=== PATIENT | male | born 1955 | race Caucasian/White ===

== ENCOUNTER 2021-06-02 12:43 | Emergency (ER) | payer OTHER, MEDICAID ==
[~2021-06-02] VITALS: Ht 172.7 cm; Wt 100.0 kg
[2021-06-02 13:05] LABS: BASOPHILS % (AUTO) 0.5 % (0-1); EOSINOPHILS # (AUTO) 0.2 X10'3 (0-0.9); EOSINOPHILS % (AUTO) 3.9 % (0-6); HEMATOCRIT 40.1 % (42.0-52.0); HEMOGLOBIN 13.5 g/dl (14.0-17.9); LYMPHOCYTES # (AUTO) 1.7 X10'3 (1.1-4.8); LYMPHOCYTES % (AUTO) 27.6 % (21-51); MEAN CORPUSCULAR HEMOGLOBIN 29.3 PG (27.0-31.0); MEAN CORPUSCULAR HGB CONC 33.6 g/dL (33.0-36.5); MONOCYTES # (AUTO) 0.6 X10'3 (0-0.9); MONOCYTES % (AUTO) 8.9 % (2-12); NEUTROPHILS # (AUTO) 3.7 X10'3 (1.8-7.7); NEUTROPHILS % (AUTO) 59.1 % (42-75); PLATELET COUNT 232 X10'3 (140-440); RED BLOOD COUNT 4.61 X10'6 (4.70-6.10); RED CELL DISTRIBUTION WIDTH 15.5 % (11.5-14.5); WHITE BLOOD COUNT 6.3 X10'3 (4.5-11.0)
[2021-06-02 13:24] LABS: ALANINE AMINOTRANSFERASE 28 U/L (12-78); ALBUMIN 3.6 G/DL (3.4-5.0); ALBUMIN/GLOBULIN RATIO 1.2 (1.1-1.5); ALKALINE PHOSPHATASE 50 IU/L (46-116); ANION GAP 9 (8-16); ASPARTATE AMINO TRANSFERASE 21 U/L (10-37); BILIRUBIN,TOTAL 0.6 MG/DL (0.1-1.0); BLOOD UREA NITROGEN 12 MG/DL (7-18); BUN/CREATININE RATIO 12.8 (5.4-32.0); CALCIUM 8.9 MG/DL (8.5-10.1); CHLORIDE 107 MMOL/L (99-107); CREATININE 0.94 MG/DL (0.60-1.10); GLUCOSE 99 MG/DL (70-104); POTASSIUM 3.8 MMOL/L (3.5-5.1); SODIUM 141 MMOL/L (135-145); TOTAL CARBON DIOXIDE 25.3 MMOL/L (24-32); TOTAL PROTEIN 6.6 G/DL (6.4-8.2); eGFR 81 ML/MIN
[2021-06-02 16:19] VITALS: BP 120/50
== END 2021-06-02 16:20 | disposition home or self-care (01) ==
LOC: ER 12:43
DX: R00.1 Bradycardia, unspecified (principal); I10 Essential (primary) hypertension; G89.29 Other chronic pain; Z98.84 Bariatric surgery status
CPT/HCPCS: 36415; 71045; 80053; 83880; 84443; 84484; 85025; 93005; 99285

== ENCOUNTER 2024-10-01 07:07 | Day surgery (SDC) | payer MEDICARE, OTHER, MEDICAID ==
--- NOTE | 2024-09-26 13:59 | ELECTROCARDIOGRAPH REPORT ---
[facility] Test Date: 2024-09-26 Test Time: 13:56:45 Pat Name: DELPHINE CASTRO Department: [facility]-PRE-OP Patient ID: [id number] Room: Gender: M [employer]: MARK : 1955 Requested By: GINGER FERNANDEZ Order Number: [id number] Reading MD: Dr. SCOTTY Muniz Measurements Intervals Rex Rate: 60 P: 0 NH: 118 QRS: -28 QRSD: 106 T: 30 QT: 458 QTc: 458 Interpretive Statements Atrial-paced rhythm Borderline left axis deviation Electronically Signed On 09-26-2024 17:37:[address] SCOTTY Muniz Please click the below link to view image of tracing.
[2024-09-26 14:24] LABS: BASOPHILS % (AUTO) 0.4 % (0-1); EOSINOPHILS # (AUTO) 0.1 X10'3 (0-0.9); EOSINOPHILS % (AUTO) 1.2 % (0-6); LYMPHOCYTES # (AUTO) 1.5 X10'3 (1.1-4.8); LYMPHOCYTES % (AUTO) 16.6 % (21-51); MEAN CORPUSCULAR HEMOGLOBIN 25.6 PG (27.0-31.0); MEAN CORPUSCULAR HGB CONC 32.3 g/dL (33.0-36.5); MEAN CORPUSCULAR VOLUME 79.2 FL (78-98); MEAN PLATELET VOLUME 7.8 FL (7.4-10.4); MONOCYTES # (AUTO) 0.9 X10'3 (0-0.9); MONOCYTES % (AUTO) 9.7 % (2-12); NEUTROPHILS # (AUTO) 6.3 X10'3 (1.8-7.7); NEUTROPHILS % (AUTO) 72.1 % (42-75); PRE OP HEMATOCRIT 38.1 % (42.0-52.0); PRE OP HEMOGLOBIN 12.3 g/dL (14.0-17.9); PRE OP PLATELET COUNT 247 X10'3 (140-440); PRE OP WHITE BLOOD COUNT 8.8 10'3 (4.8-10.8); RED BLOOD COUNT 4.82 X10'6 (4.70-6.10)
[2024-09-26 15:10] LABS: ALBUMIN 3.5 G/DL (3.4-5.0); ALBUMIN/GLOBULIN RATIO 1.2 (1.1-1.5); ALKALINE PHOSPHATASE 70 IU/L (46-116); BLOOD UREA NITROGEN 19 MG/DL (7-18); BUN/CREATININE RATIO 20.4 (10.0-20.0); CALCIUM 8.5 MG/DL (8.5-10.1); CHLORIDE 106 MMOL/L (99-107); CREATININE 0.93 MG/DL (0.60-1.10); PRE OP ALT 21 U/L (30-65); PRE OP ANION GAP 8 (8-16); PRE OP AST 15 U/L (10-37); PRE OP BILIRUB, TOTAL 0.4 MG/DL (0.0-1.0); PRE OP GLUCOSE 89 MG/DL (70-104); PRE OP POTASSIUM 4.2 MMOL/L (3.4-5.1); PRE OP SODIUM 141 MMOL/L (135-145); TOTAL CARBON DIOXIDE 26.6 MMOL/L (24-32); TOTAL PROTEIN 6.5 G/DL (6.4-8.2); eGFR 81 ML/MIN
[~2024-10-01] VITALS: Ht 172.7 cm; Wt 94.0 kg
[~2024-10-01 07:07] MED LIST: BUPIVAcaine/PF 2.5mg/ml (0.25%) 10ml vial ONE; CELE-127 PO; HYDR-3973 PO; LIDOcaine 2% (20mg/ml) 5ml vial ONE; LISI1TAB49 PO; TAMS-55 PO; TRAZ-256 PO; ZOLP-679 PO; ceFAZolin 2gm in dextrose, iso 50 ML IV ONE
[2024-10-01 07:12] VITALS: BP 129/74; PULSE 60; RESP 16; TEMP 97.4; O2SAT 98
[2024-10-01] MEDS ORDERED: acetaminophen 1,000mg/100ml IV 100 ML IV PRN (07:50)
[2024-10-01] MEDS ORDERED: HYDROmorphone/PF 0.2 MG/ML SYRINGE IV PRN ×2 (07:50)
[2024-10-01] MEDS ORDERED: meperidine/PF 25mg/ml syringe IV PRN (07:50)
[2024-10-01] MEDS ORDERED: morphine 4 MG/ML inj SYRINge IV PRN (07:50)
[2024-10-01] MEDS ORDERED: hydrALAZINE 20mg/ml inj. IV PRN (07:50)
[2024-10-01] MEDS ORDERED: labetalol 20mg/4ml (5mg/ml) syringe IV PRN (07:50)
[2024-10-01] MEDS ORDERED: ondansetron/PF 4mg/2ml inj IV PRN (07:50)
[2024-10-01] MEDS ORDERED: ringers solution, lacted 1,000 ML IV SCH (07:50)
[2024-10-01] MEDS ORDERED: proCHLORperazine 10 MG/2 ml inj IV PRN (07:50)
[2024-10-01] MEDS ORDERED: morphine 2 MG/ML inj. syringe IV PRN (07:50)
[2024-10-01] MEDS: famotidine 20mg tablet PO ONE (08:19)
[2024-10-01] MEDS: ringers solution, lacted 1,000 ML IV SCH (08:19)
[2024-10-01] MEDS ORDERED: LIDOcaine 0.5% (5mg/ml) 50ml vial ONE (10:30)
[2024-10-01] MEDS ORDERED: sevoflurane 250ml liquid IH ONE (10:32)
[2024-10-01] MEDS ORDERED: fentaNYL/PF 50MCG/1 ML 2ML syringe ONE (10:41)
[2024-10-01] MEDS ORDERED: propofol inj 20 ML IV ONE ×2 (10:57)
[2024-10-01] MEDS ORDERED: ondansetron/PF 4mg/2ml inj ONE (10:57)
[2024-10-01] MEDS ORDERED: dexamethasone sod phosphate 4mg/ml inj. ONE (10:57)
[2024-10-01] MEDS ORDERED: midazolam 1 mg/ML 2ml injection ONE (10:57)
[2024-10-01 11:29] VITALS: BP 132/79; PULSE 60; RESP 14; O2SAT 98
[2024-10-01 11:30] VITALS: BP 132/79; PULSE 60; RESP 12; O2SAT 99
[2024-10-01 11:40] VITALS: BP 138/74; PULSE 60; RESP 10; O2SAT 99
[2024-10-01 11:50] VITALS: BP 128/83; PULSE 60; RESP 13; O2SAT 94
[2024-10-01 12:00] VITALS: BP 123/56; PULSE 60; RESP 16; O2SAT 97
--- NOTE | 2024-10-01 15:59 | OPERATIVE REPORT ---
Operative Report Providers to ~ Date of Procedure: October 01, 2024 Pre-Operative Diagnosis: Left thumb carpometacarpal joint arthritis Post-Operative Diagnosis SAME as PRE-Op Procedure Performed Left thumb ligament reconstruction and tendon interposition arthroplasty. Surgeon: Carlos Del Rio MD Keno Writer None Anesthesiologist: Milton Todd Type of Anesthesia: Regional Findings: Severe CMC joint arthritis Estimated Blood Loss: None Specimen Removed: None Description of Procedure: The patient is a 69-year-old man with severe thumb arthritis refractory to nonsurgical treatment. Surgery is indicated to relieve symptoms. Risks and benefits were discussed with the patient for this procedure some of the potential complications include but are not limited to infection, bleeding, thumb instability, weakness and incomplete relief of symptoms. He agreed to proceed. He was brought to the operating room where the arm was given the IV regional block. The arm was then prepped and draped in usual manner. First incision was made over the forearm 8 cm proximal to the wrist crease over the flexor carpi radialis. Tendon was transected at that level and the incision was closed. The 2nd incision was made over the dorsal thumb metacarpal curving onto the volar wrist area. Nerves were protected and an arthrotomy was made around the trapezium which was then removed using the sagittal saw and rongeur. The FCR tendon was delivered subcutaneously into the thumb wound and leaving it attached at the base of the 2nd metacarpal. A diagonal tunnel was made in the metacarpal using 4 mm round bur. The FCR tendon was then passed through it out dorsally and then pulled back to itself and sutured tightly to itself into the periosteum. This completed the suspension plasty. The remainder of the tendon was folded up as an anchovy interposition graft and secured in the space vacated by the trapezium. The capsule was then closed over the graft imbricating it with the graft and the skin was closed in layers. Marcaine was injected in a sterile dressing was applied including a plaster splint. The tourniquet was released the hand perfused well and the patient was taken to the recovery room in stable condition. He tolerated the procedure well CARLOS DEL RIO Jr., MD October 01, 2024 15:59
== END 2024-10-01 12:09 | disposition home or self-care (01) ==
LOC: PAS 07:07
PROVIDERS: ATTEND Orthopaedic Surgery Hand Surgery
DX: M18.12 Unilateral primary osteoarthritis of first carpometacarpal joint, left hand (principal); F41.9 Anxiety disorder, unspecified; I10 Essential (primary) hypertension; M19.042 Primary osteoarthritis, left hand; Z98.890 Other specified postprocedural states; Z95.0 Presence of cardiac pacemaker; Z85.46 Personal history of malignant neoplasm of prostate; Z98.84 Bariatric surgery status; Z79.899 Other long term (current) drug therapy
CPT/HCPCS: 25312; 25448; 36415; 80053; 82948; 85025; 93005; A4215; A4618; A6449; A7000; J0690; J1100; J2003; J2250; J2405; J2704; J3010; J3490; J7030; J7120; Z7506; Z7512; Z7610